=== PATIENT | female | born 1975 | race Caucasian/White ===

== ENCOUNTER 2016-06-20 19:53 | Emergency (ER) | payer MEDICAID, OTHER ==
[2016-06-20] MEDS ORDERED: IBUPROFEN 600 MG TABLET PO ONE (20:21)
--- NOTE | 2016-06-20 20:22 | Emergency Department Record ---
History of Present Illness - General Stated complaint: RT HAND INJURY Time Seen by Provider: 06/20/16 20:17 Source: Patient, Family Mode of Arrival: Ambulatory Limitations: No limitations - History of Present Illness Initial comments: 41 yo right handed female presents with an injury after a fall. 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 She has pain in the thumb, index, and mid hand. No lacerations. She has pain with elbow full ROM. Intact skin. MD Complaint: Extremity pain, Extremity swelling, Joint pain -: Hour(s) (1) Location: Right History of Same: No -: Yes Arthralgia Radiation: Proximal Quality: Aching Consistency: Constant Improves with: Immobilization Worsens with: Palpation Associated Symptoms: Denies other symptoms - Related Data Home Medications Medication Instructions Recorded Confirmed Last Taken Metformin HCl 1,000 mg PO BID 01/15/15 06/20/16 03/23/15 Previous Rx's Medication Instructions Recorded Hydrocodone/Acetaminophen [Mode 1 tab PO Q6H PRN #15 tab 06/20/16 5mg/325mg] Allergies Allergy/AdvReac Type Severity Reaction Status Date / Time Penicillins Allergy Severe ANAPHYLAXIS Verified 06/20/16 20:20 Review of Systems Constitutional: Denies: Chills, Fever, Malaise, Weakness Eyes: Denies: Eye discharge ENT: Denies: Congestion, Throat pain Respiratory: Denies: Cough, Dyspnea, Hemoptysis, Stridor Cardiovascular: Denies: Chest pain, Palpitations, Syncope Endocrine: Denies: Fatigue Gastrointestinal: Denies: Abdominal pain, Diarrhea, Nausea, Vomiting Genitourinary: Denies: Dysuria, Urgency Musculoskeletal: Reports: As per HPI, Arthralgia, Joint swelling, Myalgia. Denies: Back pain, Neck pain Skin: Reports: As per HPI, Bruising. Denies: Change in color, Rash Neurological: Denies: Headache Psychiatric: Denies: Anxiety Hematological/Lymphatic: Denies: Blood Clots, Easy bleeding, Easy bruising, Swollen glands Past Medical History - SOCIAL HISTORY Smoking Status: Never smoker - RESPIRATORY Hx Respiratory Disorders: No - CARDIOVASCULAR Hx Cardio Disorders: No - NEURO Hx Neuro Disorders: No - GI Hx GI Disorders: No - Hx Kidney Stones: Yes - ENDOCRINE Hx Endocrine Disorders: No - MUSCULOSKELETAL Hx Musculoskeletal Disorders: Yes Hx Fibromyalgia: Yes - PSYCH Hx Psych Problems: No - HEMATOLOGY/ONCOLOGY Hx Hematology/Oncology Disorders: No Physical Exam - General General Appearance: Alert, Oriented x3, Cooperative, No acute distress Limitations: No limitations - Head Head exam: Normal inspection - Eye Eye exam: Normal appearance. negative: Conjunctival injection, Periorbital swelling - ENT ENT exam: Normal exam Ear exam: Normal external inspection Nasal Exam: Normal inspection Mouth exam: Normal external inspection - Neck Neck exam: Normal inspection - Respiratory Respiratory exam: negative: Accessory muscle use, Prolonged expiratory - Cardiovascular Cardiovascular Exam: Regular rate, Normal rhythm, Normal heart sounds Peripheral Pulses: 2+: Radial (R) - Rectal Rectal exam: Deferred - exam: Deferred - Extremities Extremities exam: Normal capillary refill. negative: Normal inspection Image of Full Body: 1 - normal inspection, pain with supination/pronation Image of Hand: 1 - tender to palpation of the index MCP, PIP, thumb snuff box, and PIP, no deformity, mild swelling, mild bruising noted, sensation is intact - Back Back exam: Reports: Full ROM. Denies: Tenderness - Neurological Neurological exam: Alert, Normal gait, Oriented X3 - Psychiatric Psychiatric exam: Normal affect, Normal mood - Skin Skin exam: Dry, Intact, Normal color, Warm Course Vital Signs 06/20/16 20:11 Temperature 98.4 F Pulse Rate [ 104 H Pulse Ox Probe] Respiratory 20 Rate Blood Pressure 162/93 [Left Arm] Pulse Ox 96 - Reevaluation(s) Reevaluation #1: The XR's of the hand and elbow are negative Given her tenderness she will be splinted and recommend follow up in the next one week with PCP for a recheck 06/20/16 20:51 Disposition Disposition: Discharge Clinical Impression: Sprain of elbow, right Qualifiers: Encounter type: initial encounter Qualified Code(s): S53.401A - Unspecified sprain of right elbow, initial encounter Sprain of hand, right Qualifiers: Encounter type: initial encounter Qualified Code(s): S63.91XA - Sprain of unspecified part of right wrist and hand, initial encounter Disposition: Home, Self-Care Condition: (1) Good Instructions: Hand Sprain (ED) Additional Instructions: Follow up with your doctor in the next one week to remove the splint and recheck for any pain or tenderness Return if the splint is uncomfortable in any way Prescriptions: Hydrocodone/Acetaminophen [Mode 5mg/325mg] 1 tab PO Q6H PRN #15 tab PRN Reason: Pain - General Forms: Patient Portal Access Time of Disposition: 20:54
[2016-06-20] MEDS ORDERED: HYDROCODONE/APAP 5/325MG TABLET PO ONE (21:24)
--- NOTE | 2016-06-25 16:04 | RADIOLOGY REPORT ---
DATE: 06/20/2016. EXAM: RIGHT ELBOW. HISTORY: Fall. TECHNIQUE: Three views of the right elbow were obtained. COMPARISON: None. ENCOUNTER: Initial. FINDINGS: Negative for fracture or dislocation. The soft tissues are unremarkable. IMPRESSION: NEGATIVE EXAMINATION. JOB NUMBER: [id number] MTDD
--- NOTE | 2016-06-25 16:07 | RADIOLOGY REPORT ---
DATE: 06/20/2016. EXAM: RIGHT HAND. HISTORY: Fall. TECHNIQUE: Three views of the right hand were obtained. COMPARISON: None. ENCOUNTER: Initial. FINDINGS: Negative for fracture or dislocation. The soft tissues are unremarkable. Joint spaces are preserved. IMPRESSION: NEGATIVE EXAMINATION. JOB NUMBER: [id number] MTDD
== END 2016-06-20 21:34 | disposition home or self-care (01) ==
LOC: ER 19:53
DX: S53.401A Unspecified sprain of right elbow, initial encounter (principal); S63.91XA Sprain of unspecified part of right wrist and hand, initial encounter; W01.0XXA Fall on same level from slipping, tripping and stumbling without subsequent striking against object, initial encounter; Y93.K9 Activity, other involving animal care
CPT/HCPCS: 99283; 99284